=== PATIENT | female | born 1960 | race African-American/Black ===

== ENCOUNTER 2023-12-13 14:18 | Outpatient (CLI) | payer OTHER | END 2023-12-13 14:19 | disposition home or self-care (01) | LOC: MADRAD 14:18 | PROVIDERS: ATTEND Nurse Practitioner Family | DX: S99.911D Unspecified injury of right ankle, subsequent encounter (principal); S82.61XD Displaced fracture of lateral malleolus of right fibula, subsequent encounter for closed fracture with routine healing ==